=== PATIENT | female | born 1965 | race Caucasian/White ===

== ENCOUNTER → 2020-01-02 | Outpatient (CLI) | payer BC ==
--- NOTE | 2020-01-02 17:53 | MR ---
EXAMINATION TYPE: MR knee LT wo con DATE OF EXAM: 01/02/2020 COMPARISON: Outside knee x-ray October 20, 2019. HISTORY: Chronic left knee pain. TECHNIQUE: Multiplanar, multisequence images of the knee is performed without IV contrast. FINDINGS: MEDIAL MENISCUS: Anterior horn is intact without tear. Vague increased oblique signal does not extend to articular surface posterior horn. LATERAL MENISCUS: Anterior and posterior horns are intact without tear. CRUCIATE LIGAMENTS: The anterior and posterior cruciate ligaments are intact and unremarkable. COLLATERAL LIGAMENTS: The medial collateral ligament and lateral collateral ligament complex are inta ct and unremarkable. EXTENSOR MECHANISM: Visualized quadriceps and patellar tendons are intact. EFFUSION: No significant suprapatellar joint effusion. POPLITEAL CYST: No popliteal/garzon cyst. TRICOMPARTMENT SPACES: [id number] tricompartmental joint space loss greatest patellofemoral and medial tibiofemoral compartment. No significant spurring. CARTILAGE: Chondromalacia patella present with thinning of articular cartilage along posterior patell ar pole. Small focus full-thickness loss sagittal image 11 and axial image 22. BONE MARROW SIGNAL: Small focus increased T2 signal at site of full-thickness cartilaginous loss sagi ttal image 11. OTHER: No additional significant abnormality is appreciated. IMPRESSION: 1. No meniscal or ligamentous tear is seen. 2. Mild to moderate tricompartment degenerative changes greatest patellofemoral compartment as detail ed above.
== END | disposition home or self-care (01) ==
LOC: RADMRIMAIN 13:09
PROVIDERS: ATTEND Orthopaedic Surgery
DX: M17.12 Unilateral primary osteoarthritis, left knee (principal)

== ENCOUNTER 2020-01-18 10:14 | Emergency (ER) | payer BC ==
[2020-01-18] MEDS ORDERED: HYDROmorphone 1 MG/ML 1 ML SYRINGE IM STA (10:41)
[2020-01-18] MEDS ORDERED: methylPREDNISolone SOD SUCCI 125 MG/2 ML VIAL IM ONE (10:41)
[2020-01-18] MEDS ORDERED: DIAZEPAM 5 MG/ML 2 ML INJ IM ONE (10:41)
--- NOTE | 2020-01-18 10:46 | ED ---
Back Pain HPI - General Chief Complaint: Back Pain/Injury Stated Complaint: Back Pain Time Seen by Provider: 01/18/20 10:26 Source: patient, RN notes reviewed, old records reviewed Limitations: physical limitation - History of Present Illness Initial Comments: Patient is admitted to-year-old female who presents emergency department today for evaluation with chief complaint of severe lower back pain. Patient reports that she has history of chronic back pain muscle spasms and fibromyalgia. Patient reports that she called her primary care doctor and was placed on muscle relaxers. She does take Ultram for chronic pain from a paint tester as well as Motrin and Aleve. Patient reports that she was doing some exercises on Wednesday and woke up with severe back pain and stiffness and muscle spasms. She reports that after 4 days of using her current medication regimen she still having pain and decided come to the ER. She reports some intermittent paresthesias down bilateral extremities. She states that she's had no loss control of her urine or bowel habits. She reports normal sensation perineum. Patient states that she's had no abdominal pain. She reports that her Medicaid any medication such as stronger pain medicine like Percocet will not help with her pain. Patient reports that she does not plan to see her current paint tester as they're not helping her with her severe current pain. Patient has had no fevers or chills, nausea or vomiting or abdominal pain. - Related Data Previous Rx's Medication Instructions Recorded Diazepam [Valium] 5 mg PO Q8H PRN 3 Days #9 tab 01/18/20 HYDROcodone/APAP 5-325MG [Clarkridge 1 tab PO Q6HR PRN 3 Days #12 tab 01/18/20 5-325] Ibuprofen [Motrin] 600 mg PO Q6HR PRN #20 tab 01/18/20 Allergies Allergy/AdvReac Type Severity Reaction Status Date / Time Penicillins Allergy Unknown Verified 01/18/20 10:25 Childhood Review of Systems ROS Statement: Those systems with pertinent positive or pertinent negative responses have been documented in the HPI. ROS Other: All systems not noted in ROS Statement are negative. Past Medical History Past Medical History: Fibromyalgia Additional Past Medical History / Comment(s): back pain, DDD History of Any Multi-Drug Resistant Organisms: None Reported Past Surgical History: Tubal Ligation, Uterine Ablation Additional Past Surgical History / Comment(s): breast augmentation, liposuction Past Psychological History: Depression Smoking Status: Never smoker Past Alcohol Use History: None Reported Past Drug Use History: None Reported General Exam - General Exam Comments Initial Comments: [id number]-[id number]-mcg female. Alert and oriented 3. No significant distress. Limitations: physical limitation General appearance: alert, in no apparent distress Head exam: Present: atraumatic, normocephalic, normal inspection Eye exam: Present: normal appearance, PERRL, EOMI. Absent: scleral icterus, conjunctival injection, periorbital swelling ENT exam: Present: normal exam, mucous membranes moist Neck exam: Present: normal inspection. Absent: tenderness, meningismus, lymphadenopathy Respiratory exam: Present: normal lung sounds bilaterally. Absent: respiratory distress, wheezes, rales, rhonchi, stridor Cardiovascular Exam: Present: regular rate, normal rhythm, normal heart sounds. Absent: systolic murmur, diastolic murmur, rubs, gallop, clicks GI/Abdominal exam: Present: soft, normal bowel sounds. Absent: distended, guarding, rebound, rigid Extremities exam: Present: normal inspection, full ROM, normal capillary refill, other ( pulses 2+ dorsalis pedis and posterior tibial. Full range of motion of toes.). Absent: tenderness, pedal edema, joint swelling, calf tenderness Back exam: Present: normal inspection, tenderness (over lumbar spine, paraspinal muscle spasm bilteral thoracic and lumbar spine. ), muscle spasm, paraspinal tenderness (luimbar) Neurological exam: Present: alert, oriented X3, CN II-XII intact Psychiatric exam: Present: normal affect, normal mood Skin exam: Present: warm, dry, intact, normal color. Absent: rash Course Vital Signs 01/18/20 01/18/20 10:22 11:18 Temperature 98.3 F 98.1 F Pulse Rate 73 66 Respiratory 18 14 Rate Blood Pressure 114/68 132/68 O2 Sat by Pulse 100 99 Oximetry Medical Decision Making - Medical Decision Making [id number] female with history of my fibromyalgia and chronic back pain. She presents emergency room stay with 40s worsening back pain. It's worse with certain movements and reports muscle spasms. She is given IM pain medications as reports some relief. Patient states she plans follow with a new paint tester. Patient's x-ray showed evidence of changes disease and severe and L5-S1. Patient will be discharged at this time with anti- inflammatory and prescription for muscle relaxer pain medication. Discussed return parameters and PCP follow-up. - Radiology Data Radiology results: report reviewed multilevel degenerative disc changes, most severe at L5-S1. No acute frac ture. Disposition Clinical Impression: Back pain Disposition: HOME SELF-CARE Condition: Good Instructions (If sedation given, give patient instructions): Acute Low Back Pain (ED) Additional Instructions: Follow-up with new paint tester. Return to the ED if any alarming signs or symptoms occur. Prescriptions: Ibuprofen [Motrin] 600 mg PO Q6HR PRN #20 tab PRN Reason: Pain HYDROcodone/APAP 5-325MG [Cl[place]ridge 5-325] 1 tab PO Q6HR PRN 3 Days #12 tab PRN Reason: Pain Diazepam [Valium] 5 mg PO Q8H PRN 3 Days #9 tab PRN Reason: Muscle Spasm Is patient prescribed a controlled substance at d/c from ED?: Yes If prescribed controlled substance>3 days was MAPS reviewed?: Prescribed <3 Days If opioid is for acute pain is fill amount 7 days or less?: Yes If Rx opioid, was Start Talking consent form obtained?: Yes Referrals: Angie Harden DO [Primary Care Provider] - 1-2 days Lan Beckett MD [STAFF PHYSICIAN] - 1-2 days Jordan Sanchez DO [Doctor of Osteopathic Medicine] - 1-2 days Time of Disposition: 11:53
--- NOTE | 2020-01-18 11:16 | XR ---
EXAM TYPE: LUMBAR SPINE X RAY SERIES COMPARISON: NONE HISTORY: Pain TECHNIQUE: 4 views are submitted. FINDINGS: Alignment is anatomic. The pedicles are intact. The transverse processes are intact. There is no s pondylolysis or spondylolisthesis. There is mild hypertrophic and degenerative disc disc disease wit h severe changes at L5-S1. Facet arthropathy L4-5 and L5-S1. Chronic appearing deformity of the right 12th rib. IMPRESSION: 1. Multilevel degenerative disc disease most marked at L5-S1 with severe changes.
[2020-01-18 11:22] VITALS: TEMP 98.1
[2020-01-18 12:17] VITALS: BP 123/67; PULSE 79; RESP 16
== END 2020-01-18 12:18 | disposition home or self-care (01) ==
LOC: EC 10:14
DX: M54.5 Low back pain (principal); Z88.0 Allergy status to penicillin
CPT/HCPCS: 72100; 99284; 96372 ×3; J2930; J3360; J1170

== ENCOUNTER → 2020-05-21 | Outpatient (CLI) | payer BC ==
--- NOTE | 2020-05-21 22:35 | MR ---
EXAMINATION TYPE: MR knee RT wo con DATE OF EXAM: 05/21/2020 COMPARISON: Radiographs 10/20/2019. HISTORY: Right Knee Pain, Lateral side TECHNIQUE: Multiplanar, multisequence imaging of the right knee is performed without IV contrast. FINDINGS: MEDIAL MENISCUS: Mucoid degeneration of the posterior horn with suspected small peripheral tear. Ante rior horn is intact without tear. LATERAL MENISCUS: Anterior and posterior horns are intact without tear. CRUCIATE LIGAMENTS: The anterior and posterior cruciate ligaments are grossly intact. COLLATERAL LIGAMENTS: Mild thickening of the medial collateral ligament without disruption and sugges tive of prior grade 1 sprain. Lateral collateral ligament complex is grossly intact. EXTENSOR MECHANISM: Moderate insertional tendinosis of the quadriceps tendon with intrasubstance tear at the lateral aspect. Patellar tendon is intact. EFFUSION: Small knee joint effusion. POPLITEAL CYST: No significant popliteal/garzon cyst. TRICOMPARTMENT SPACES: Mild tricompartmental joint space narrowing. CARTILAGE: Small partial thickness chondral defect overlying the patellofemoral compartment lateral f acet. No significant chondral defect of the medial and lateral compartments. BONE MARROW SIGNAL: No focal abnormal marrow signal is appreciated. OTHER: Moderate soft tissue edema about the superolateral aspect of the knee. IMPRESSION: Moderate insertional tendinosis of the quadriceps tendon with intrasubstance tear. Associated moderat e soft tissue edema and small knee joint effusion. Mucoid degeneration of the medial meniscus posterior horn with suspected small peripheral tear. Mild chondromalacia of the patellofemoral compartment with partial thickness chondral defect. Prior grade 1 MCL sprain.
== END | disposition home or self-care (01) ==
LOC: RADMRIMAIN 16:28
PROVIDERS: ATTEND Orthopaedic Surgery
DX: M94.261 Chondromalacia, right knee (principal); S83.411A Sprain of medial collateral ligament of right knee, initial encounter; M79.89 Other specified soft tissue disorders; M23.321 Other meniscus derangements, posterior horn of medial meniscus, right knee; M25.461 Effusion, right knee

== ENCOUNTER → 2021-02-19 | Outpatient (CLI) | payer BC ==
[2021-02-19 08:30] VITALS: BP 135/88; PULSE 73; RESP 18; TEMP 98.2
--- NOTE | 2021-02-19 13:00 | P.PAINCN ---
History of Present Illness - Reason for Consult Consult date: 02/19/21 - History of Present Illness Emily is a 55-year-old male presented to clinic today for initial evaluation for pain management. She has a history of fibromyalgia, cervical degenerative disc disease, lumbar degenerative disc disease, and osteoarthritis. She reports that her pain is been going on for most of her life. She has a family history of osteoarthritis. Most pain today she's describing is in her neck and her back. She states is been ongoing for over 2025 years. She describes it as a constant achy pain sensation. Pain is aggravated with increased activity and touch. Pain is relieved with rest and soaking in her hot tub. In the past she has had physical therapy without much significant benefit. She is also had a lumbar epidural steroid injection at L5-S1 which gave her some significant benefit in the past. Today she rates her pain as 7 out of 10 on a 0-to-10 scale her pain can fluctuate from anywhere 4 out of 10-10 out of 10. He denies any bowel or bladder dysfunction, saddle anesthesia, or any other red flag symptoms. Past Medical History Past Medical History: Fibromyalgia Additional Past Medical History / Comment(s): back pain, DDD History of Any Multi-Drug Resistant Organisms: None Reported Past Surgical History: Tubal Ligation, Uterine Ablation Additional Past Surgical History / Comment(s): breast augmentation, liposuction Past Psychological History: Depression Smoking Status: Never smoker Past Alcohol Use History: None Reported Past Drug Use History: None Reported Medications and Allergies Allergies Allergy/AdvReac Type Severity Reaction Status Date / Time Penicillins Allergy Unknown Verified 02/19/21 08:30 Childhood Physical Exam REVIEW OF ORGAN SYSTEMS: CONSTITUTIONAL: No fevers or chills. No recent weight loss. EYES: denies troubles with vision. HEENT: No difficulties with hearing. No nosebleeds. No difficulty swallowing. RESPIRATORY: Denies any troubles with breathing or dyspnea on exertion. CARDIOVASCULAR: Denies any chest pain, palpitations, or recent heart attacks. GASTROINTESTINAL: Denies fatty food intolerance. Has change in bowel habits and gas bloat. GENITOURINARY: Denies any blood in urine. Has increased urinary frequency. NEUROLOGICAL: + numbness and tingling along the distal extremities. No seizure disorders or headaches. MUSCULOSKELETAL: Has back pain. SKIN:no skin cancer. No rash. PSYCHIATRIC: Denies current depression or suicidal thoughts. ENDOCRINE: Denies current thyroid disorders. Denies any blood sugar glucose intolerance. HEME/LYMPHATIC: Denies any lumps and bumps around the neck. History of deep venous thrombosis. ALLERGY/IMMUNOLOGY: No immunoglobulin therapy. No immune deficiencies. BREAST: Denies current breast lumps, pain or nipple discharge. Physical Examinations : Constitutiona : Cooperative , not in acute distress . HEENT : nech : supple , no Lymphadenopathy , normal thyroid size . : eyes no ptosis , no icterus, no photophobia . : ENT normal of hearing , normal oropharynx , no Thrush . Respiratory : Chest clear to auscultations Bilaterally , no wheezing , no Rhonchi . Cardiovascula : regular rate and rhythem , S1 , S2 , no S3 , no S4. Gastrointestina : abdomen soft no tenderness , bowel sounds , no organomegally . Genitourinary : Defferred . neurologic : Cranial nerve II to XII intact , no focal neurological deffecit . psychatric : alert , oriented X 3 , appropriate affect , intact judgment and insight . Lymphatic : no Lymphadenopathy . musculoskeltal : Cervical Spine motor stregnth in the deltoid and biceps, normal right side , normal Left side motor stregnth biceps and the wrist extensors normal right side ,normal left side . motor stregnth in the triceps muscle . normal Right side , normal Left side deep tendon reflexes= normal at the biceps , normal at Brachioradialis , normal at triceps. cervical facet loading test: Positive Bilaterally Spurling test= positive bilaterally. Neck distraction test= positive bilaterally. Nidia sign= negative bilaterally Lumber spine moter stegnth lower extremities ,thigh and legs 5/5 Right side , 5/5 Left side deep tendon reflexes : normal Knee Jerk , normal ankle Jerk lumber facet Loading Test= positive Right , positive Left Range of motion of the lumbar spine Flexion 30 degrees, extension 10 degrees strait leg raising test , positive at 20 degree Fabere test= positive Right , and positive left . Sever tenderness over the Sacroiliac joint on the Right , and Left sides Gaenslen test= positive bilaterally. Seated flexion test= positive bilaterally. Assessment and Plan Assessment: Assessment and plan Assessment: Fibromyalgia Cervical degenerative disc disease Lumbar degenerative disc disease Ruth osteoarthritis Plan: Patient could benefit from lumbar epidural steroid injection at L5-S1 Consider cervical epidural steroid injection at C7-T1 in the future Dr. Beckett was available by phone for consultation during his visit. I have spent 50 minutes on patient care today. The time was used to review the medical records including relevant urine studies and Prescription history (MAPs), review of the available imaging, evaluation and examination of the patient, coordination of care with the medical staff and if applicable referring physicians, as well as creation of the medical record. - PQRS measures = - Patient's medications are documented in the chart. -Tobacco use is negative -Patient's has not received pneumococcal vaccine. -Advanced care planning discussed, patient not eligible. -Opiate contract not signed. -Pain positive and follow-up visit/procedure is scheduled. - Patient's blood pressure was 135/88 -Patient was not identified as an unhealthy alcohol user Time with Patient: Greater than 30 PQRS Measure Charge Sheet - Pain Location Lower Back Non-Pharmacological Interventions: Exercise, Home Exercise, Inactivity, Relaxation Technique, Stretching Pharmacological Interventions: PRN Medication Neck Non-Pharmacological Interventions: Exercise, Home Exercise, Inactivity, Relaxation Technique, Stretching Pharmacological Interventions: PRN Medication
== END ==
LOC: PNWHC3 08:11
PROVIDERS: ATTEND Student in an Organized Health Care Education/Training Program
DX: M51.36 Other intervertebral disc degeneration, lumbar region (principal); M50.30 Other cervical disc degeneration, unspecified cervical region; M79.7 Fibromyalgia; M19.90 Unspecified osteoarthritis, unspecified site; Z88.0 Allergy status to penicillin
CPT/HCPCS: 99211

== ENCOUNTER → 2021-06-04 | Outpatient (CLI) | payer BC ==
[2021-06-04 10:56] VITALS: BP 116/69; PULSE 67; RESP 18; TEMP 98.3
--- NOTE | 2021-06-04 11:03 | P.PN ---
Subjective Progress Note Date: 06/04/21 Principal diagnosis: A 55 yr old female with a history of severe and chronic low back pain secondary to lumbar degenerative disc diseases and lumbar spondylosis with facet arthropathy presents today for evaluation status post LESI L5-S1 #1. She states she experienced 30-40% pain relief for 1 week status post procedure. Pain level waxes and wanes throughout the day but is currently at 6 out of 10 in intensity, dull, achy, constant in the lower aspects of the lumbar spine with constant radiation of burning pain down the left lower extremity. Pain is provoked by standing and walking for periods of 45 minutes or more. Pain is alleviated with heating pad use, daily guided exercises, participation in the yoga, use of a hot tub, repositioning and rest. Patient states she's had bad reactions to medications in the past and tries to take a natural approach to pain relief. Interventional pain procedures completed include LESI L5-S1 #1 Patient is currently on DENIES. Patient denies any side effects of the medication(s), denies excessive drowsiness or sleepiness, denies suicidal ideation and reports that the current pain medication is helping to control the pain and improve activities of daily living. Patient denies any motor or sensory deficits. Patient denies any fever or night sweats, denies any change in the bowel movements or urination. Physical Examination: -Constitutional: Cooperative. Not in acute distress . -HEENT: Neck is supple. No lymphadenopathy. No thyromegaly. Normal thyroid size. Eyes: No ptosis , no icterus, no photophobia. ENT: No auditory deficits. Normal oropharynx. No Thrush. - Respiratory: Chest clear to auscultations bilaterally. No wheezing. No rhonchi. - Cardiovascular: Regular rate and rhythm. S1 / S2 , no S3 , no S4. - Gastrointestinal: Abdomen soft no tenderness. Bowel sounds positive in all four quadrants. No organomegaly. - Genitourinary: Deferred. - Neurologic: Cranial nerve II to XII intact. No focal neurological deficits. - Psychatric: Alert & oriented x 3. Matching mood & appropriate affect. Judgment and insight intact. - Lymphatic: No Lymphadenopathy. - Musculoskeletal: Cervical spine: Muscle bulk/ tone/ strength in the bilateral upper extremities normal. Facet loading test cervical area positive. Lumbar spine: Motor bulk/ tone/ strength lower extremities , thigh and legs : 5/5 Deep tendon reflexes : Normal Knee Jerk. Normal Ankle Jerk . Vertebral body tenderness to palpation over L5 Lumbar Facet Loading Test Straight Leg Raise: positive at 30 degrees right side/ left side Gaenslen's Test positive on the left Sacral spine : Severe tenderness over the Sacroiliac joint: right side / left side Range of motion: Flexion of the lumbar spine <60 degrees Range of motion: Extension of the lumbar spine <20 degrees Gaenslen's Test positive Marilyn test: positive right side / left side Assessment and plan: Chronic low back pain secondary to lumbar degenerative disc disease , lumbar spondylosis with facet arthropathy without myelopathy Recommendation of LESI L4-L5. 6, benefits of procedure discussed and patient verbalized understanding. Denies anticoagulant use. Denies the medical history diabetes mellitus. All patient questions answered MAPS reviewed and it was appropriate. I have spent 31 minutes on patient care today. Dr Bcekett was available by phone for the evaluation of this patient. The time was used to review the medical records including relevant urine studies and Prescription history (MAPs), review of the available imaging, evaluation and examination of the patient, coordination of care with the medical staff and if applicable referring physicians, as well as creation of the medical record Objective - Vital Signs Vital signs: Vital Signs Temp 98.3 F 06/04/21 10:47 Pulse 67 06/04/21 10:47 Resp 18 06/04/21 10:47 BP 116/69 06/04/21 10:47 Pulse Ox 100 06/04/21 10:47 Intake & Output 06/03/21 06/04/21 06/04/21 18:59 06:59 18:59 Weight 53.524 kg PQRS Measure Charge Sheet Mode of Arrival: Ambulatory - Pain Location Generalized Non-Pharmacological Interventions: Heat, Home Exercise, Inactivity, Position/Reposition, Stretching Pharmacological Interventions: Epidural PQRS Narrative: Blood Pressure 116/69 Pain Intensity [Generalized] 6 Scale Used Numeric (1 - 10) Hx Alcohol Use (MH) No Home Medications: Ambulatory Orders No Known Home Medications 05/12/21
== END ==
LOC: PNWHC3 10:25
PROVIDERS: ATTEND Physician Assistant Medical
DX: M51.36 Other intervertebral disc degeneration, lumbar region (principal); M47.816 Spondylosis without myelopathy or radiculopathy, lumbar region; G89.29 Other chronic pain; Z88.0 Allergy status to penicillin
CPT/HCPCS: 99211

== ENCOUNTER 2021-07-08 11:49 | Day surgery (SDC) | payer BC ==
[2021-07-07 12:56] VITALS: BMI 20.3
[~2021-07-08 11:49] MED LIST: LACTATED RINGERS 1,000 ML IV SCH
[2021-07-08] MEDS ORDERED: LACTATED RINGERS 1,000 ML IV ONE (12:14)
--- NOTE | 2021-07-08 12:24 | P.PCN ---
Date of Procedure: 07/08/21 Description of Procedure: PREOPERATIVE DIAGNOSIS: lumbar radiculopathy POSTOPERATIVE DIAGNOSIS: Lumbar radiculopathy PROCEDURE 1. Lumbar epidural steroid injection under fluoroscopic guidance at the L4-L5 level. 2. Lumbar epidurogram. Imaging: Fluoroscopy was used, images where saved to the medical record ANESTHESIA: Local with 1% lidocaine 5 ml and Versed and fentanyl EBL: Minimal PROCEDURE INDICATION: The patient with low back pain and radiculitis symptoms unresponsive to conservative treatment. Fluoroscopy was used to optimize visualization of the needle placement and to maximize safety. PROCEDURE DESCRIPTION / TECHNIQUE: The patient was seen and identified in the preoperative area. Risks, benefits, complications including but not limited to infections ,bleeding ,allergic reaction to the medications, nerve damage and incomplete pain relief , as well as alternatives to the procedure were discussed with the patient. The patient agreed to proceed with the procedure and signed the consent. IV was started, and vital signs were stable. Patient was taken to the OR and time out was completed. The patient was placed in the prone position on procedure table and a pillow was placed under the abdomen to reduce lumbar lordosis. The lumbosacral area was prepped and draped in the usual sterile fashion. Vitals were closely monitored during the procedure. Using anterior-posterior fluoroscopy, the L4-L5 interlaminar space was identified and the skin over this site was marked and then infiltrated with 1% lidocaine subcutaneously. Subsequently, a 20-gauge Tuohy epidural needle was inserted and advanced toward the epidural space using the Loss of resistance technique and guided by AP and lateral fluoroscopy. The correct needle position in the epidural space was verified with the injection of 1 mL of Omnipaque 180 contrast to observe an acceptable epidurogram, after negative aspiration for blood and CSF and in the absence of paresthesias. Again after negative aspiration, a 3 ml mixture containing 40mg of depomedrol and 2 ml of preservative free Normal Saline was injected and a washout of epidurogram was seen. Needle was withdrawn intact, skin was cleansed, and bandages were applied. COMPLICATIONS: None DISPOSITION / PLANS: The patient was placed in a supine position and transferred to the recovery area in a stable condition for observation. There was no evidence of lower extremity motor or sensory deficit after the procedure. Patient was discharged from the recovery room after meeting discharge criteria. Home discharge instructions were given to the patient by the staff. The patient was reexamined prior to discharge. The patient will follow up as directed.
[2021-07-08 12:25] VITALS: TEMP 99.4
[2021-07-08] MEDS ORDERED: fentaNYL (PF) 50 MCG/ML 2 ML AMP ONE (12:32)
[2021-07-08] MEDS ORDERED: IOPAMIDOL M200 10 ML VIAL ONE (12:32)
[2021-07-08] MEDS ORDERED: MIDAZOLAM 2 MG/2 ML VIAL ONE (12:32)
[2021-07-08] MEDS ORDERED: methylPREDNISolone ACETATE 40 MG/ML 1 ML VIAL ONE (12:32)
[2021-07-08] MEDS ORDERED: IV FLUID CONTINUATION 800 ML IV ONE (12:44)
[2021-07-08 12:46] VITALS: RESP 16
[2021-07-08 13:06] VITALS: BP 99/66; PULSE 69
--- NOTE | 2021-07-08 13:18 | FL ---
EXAMINATION TYPE: FL guided pain mgmt statistic DATE OF EXAM: 07/08/2021 HISTORY: Fluoroscopy time 2 seconds of fluoroscopy provided. IMPRESSION: 1. Fluoroscopy time.
== END 2021-07-08 13:18 | disposition home or self-care (01) ==
LOC: ORPAIN 11:49
PROVIDERS: ATTEND Hospitalist
DX: M54.16 Radiculopathy, lumbar region (principal)
CPT/HCPCS: 62323; 81025; J2250; J1030; J3010; Q9966

== ENCOUNTER → 2021-10-13 | Outpatient (CLI) | payer BC ==
[2021-10-13 10:50] VITALS: BP 124/73; PULSE 62; RESP 18; TEMP 98.5
--- NOTE | 2021-10-13 14:25 | P.PAINPG ---
Objective - Vital Signs Vital signs: Intake & Output 10/12/21 10/13/21 10/13/21 18:59 06:59 18:59 Weight 53.524 kg PQRS Measure Charge Sheet Comment: A 55 yr old female with a history of severe and chronic low back pain secondary to lumbar degenerative disc diseases and lumbar spondylosis with facet arthropathy presents today for medication refills. Pain level is 7/10, lower back w radiation to BLEs. It is a constant ache, dull/ achy in character. Pain is provoked by any lifting. Pain is alleviated with massage therapy semimonthly for 2 yrs with last visit in 2020, chiropractic treatment weekly for 1 yr last in 2020, heat, topical Voltaren, repositioning and rest. Interventional pain procedures completed include LESI L4-L5 x 2 Patient is currently on Voltaren gel Patient denies any side effects of the medication(s), denies excessive drowsiness or sleepiness, denies suicidal ideation and reports that the current pain medication is helping to control the pain and improve activities of daily living. Patient denies any motor or sensory deficits. Patient denies any fever or night sweats, denies any change in the bowel movements or urination. Physical Examination: -Constitutional: Cooperative. Not in acute distress . - Neurologic: Cranial nerve II to XII intact. No focal neurological deficits. - Psychatric: Alert & oriented x 3. Matching mood & appropriate affect. Judgment and insight intact. - Musculoskeletal: Cervical spine: Muscle bulk/ tone/ strength in the bilateral upper extremities normal Vertebral body tenderness to palpation over Spurling test positive Distraction test positive Facet loading test positive Thoracic spine Muscle bulk / tone/ strength in the bilateral paraspinal muscles normal Vertebral body tender to palpation over Facet loading test positive Lumbar spine: Motor bulk/ tone/ strength lower extremities , thigh and legs : 5/5 Deep tendon reflexes : Normal Knee Jerk. Normal Ankle Jerk . Vertebral paraspinal tenderness to palpation over L1- S1 BL Lumbar Facet Loading Test positive Straight Leg Raise: positive at 30 degrees right side/ left side Gaenslen's Test positive Sacral spine : Severe tenderness over the Sacroiliac joint: right side / left side Range of motion: Flexion of the lumbar spine <60 degrees Range of motion: Extension of the lumbar spine <20 degrees Gaenslen's Test positive Misha's Test positive Marilyn test: positive right side / left side Thigh Thrust Test Sacral Thrust Test Assessment and plan: Chronic low back pain secondary to lumbar degenerative disc disease , lumbar spondylosis with facet arthropathy without myelopathy Recommendation of BL TPIs of L1-S1. Risks, benefits of procedure discussed and pt verbalized understanding. Denies anticoagulant use or medical history of diabetes. All patient questions answered MAPS reviewed and it was appropriate. Fill Elavil 25mg PO QHS #30 w 1 refill I have spent less than 30 minutes on patient care today. Dr Beckett was available by phone for the evaluation of this patient. The time was used to review the medical records including relevant urine studies and Prescription history (MAPs), review of the available imaging, evaluation and examination of the patient, coordination of care with the medical staff and if applicable referring physicians, as well as creation of the medical record - Pain Location Bilateral Lower Back Non-Pharmacological Interventions: Chiropractic Treatment, Heat, Home Exercise, Massage Pharmacological Interventions: Epidural, Topical Medication PQRS Narrative: Hx Alcohol Use (MH) No Home Medications: Ambulatory Orders Naltrexone HCl/Bupropion HCl [Contrave ER 8-90 mg Tablet] 1 tab PO Q24HR 30 Days #30 tab 08/06/21 Controlled Substance Measures - Controlled Substance Measures Is patient prescribed a controlled substance at discharge?: No
== END ==
LOC: PNWHC3 10:15
PROVIDERS: ATTEND Specialist
DX: M51.36 Other intervertebral disc degeneration, lumbar region (principal); M47.816 Spondylosis without myelopathy or radiculopathy, lumbar region; G89.29 Other chronic pain
CPT/HCPCS: 99211

== ENCOUNTER 2021-10-30 14:43 | Emergency (ER) | payer BC ==
[2021-10-30] MEDS ORDERED: ORPHENADRINE 30 MG/ML 2 ML VIAL IM STA (16:12)
[2021-10-30] MEDS ORDERED: KETOROLAC 15 MG/ML 1 ML VIAL IM STA (16:12)
--- NOTE | 2021-10-30 16:29 | ED ---
Back Pain HPI - General Chief Complaint: Back Pain/Injury Stated Complaint: Back pain Time Seen by Provider: 10/30/21 16:11 Source: patient Limitations: no limitations - History of Present Illness Initial Comments: Patient is a 55-year-old female presenting with chief complaint of back pain. Patient admits to chronic back pain, she states that after bending over for a laundry basket today, she noticed increased pain. She denies any loss of bowel or bladder control or saddle paresthesia. Patient states that she has fibromyalgia, and this pain feels like a heightened version of her chronic back pain. She states that it feels like a tightness and spasming. She denies saddle paresthesia, loss of bowel or bladder control, fever, chills, nausea, vomiting, chest pain, shortness of breath, abdominal pain, dysuria, hematuria, urgency, frequency, diarrhea, hematochezia, melena, weakness. - Related Data Previous Rx's Medication Instructions Recorded Amitriptyline HCl [Elavil] 25 mg PO HS 30 Days #30 tablet 10/13/21 HYDROcodone/APAP 5-325MG [[place] 1 tab PO Q4HR PRN 3 Days #18 tab 10/27/21 5-325] tiZANidine [Zanaflex] 4 mg PO Q6HR PRN 30 Days #60 tab 10/27/21 Allergies Allergy/AdvReac Type Severity Reaction Status Date / Time Penicillins Allergy Unknown Verified 10/30/21 16:06 Childhood Review of Systems ROS Statement: Those systems with pertinent positive or pertinent negative responses have been documented in the HPI. ROS Other: All systems not noted in ROS Statement are negative. Past Medical History Past Medical History: Fibromyalgia, Osteoarthritis (OA) Additional Past Medical History / Comment(s): Back pain, DDD. History of Any Multi-Drug Resistant Organisms: None Reported Past Surgical History: Breast Surgery, Tubal Ligation, Uterine Ablation Additional Past Surgical History / Comment(s): Breast augmentation, liposuction, pain clinic procedures. Past Anesthesia/Blood Transfusion Reactions: No Reported Reaction Past Psychological History: No Psychological Hx Reported, Depression Smoking Status: Never smoker Past Alcohol Use History: None Reported Past Drug Use History: None Reported - Past Family History Mother Family Medical History: No Reported History General Exam Limitations: no limitations General appearance: alert, in no apparent distress Head exam: Present: atraumatic, normocephalic, normal inspection Eye exam: Present: normal appearance, EOMI. Absent: scleral icterus, periorbital swelling Neck exam: Present: normal inspection Respiratory exam: Present: normal lung sounds bilaterally. Absent: respiratory distress, wheezes, rales, rhonchi, stridor Cardiovascular Exam: Present: regular rate, normal rhythm, normal heart sounds. Absent: systolic murmur, diastolic murmur, rubs, gallop, clicks Back exam: Present: normal inspection, paraspinal tenderness. Absent: vertebral tenderness Neurological exam: Present: alert, oriented X3, CN II-XII intact Psychiatric exam: Present: normal affect, normal mood Skin exam: Present: warm, dry, intact, normal color. Absent: rash Course Vital Signs 10/30/21 10/30/21 16:02 16:53 Temperature 98.6 F 98.2 F Pulse Rate 73 70 Respiratory 20 16 Rate Blood Pressure 149/82 146/80 O2 Sat by Pulse 100 99 Oximetry Medical Decision Making - Medical Decision Making Patient is a 55-year-old female presenting with chief complaint of low back pain. Patient states it feels like a more intense version of her chronic back pain. Patient states came on when bending over to clam picker a laundry basket. She denies any saddle paresthesia or loss of bowel or bladder control. On examination there is some paraspinal muscle tenderness and muscle spasm. No vertebral body tenderness. No radiculopathy. Patient is given pain medication and instructed to follow-up with her PCP. Report back to ER with any new or worsening symptoms. Discussed return parameters and answered all questions. Patient conveyed verbal understanding and agreed to the plan. I discussed this plan with my attending Dr. Casey Disposition Clinical Impression: Acute exacerbation of chronic low back pain Disposition: HOME SELF-CARE Condition: Good Instructions (If sedation given, give patient instructions): Acute Low Back Pain (ED), Chronic Back Pain (DC), Lower Back Exercises (ED) Additional Instructions: Follow-up with PCP in one to 2 days. Report back to ER with any new or worsening symptoms. Take medication as prescribed. Medication may cause drowsiness, do not take before driving or operating heavy machinery. Take Motrin and Tylenol as needed for pain control. Rest, and apply heat or ice as needed for relief. Is patient prescribed a controlled substance at d/c from ED?: No Referrals: Angie Harden DO [Primary Care Provider] - 1-2 days Time of Disposition: 16:29
[2021-10-30 16:54] VITALS: BP 146/80; PULSE 70; RESP 16; TEMP 98.2
== END 2021-10-30 16:53 | disposition home or self-care (01) ==
LOC: EC 14:43
DX: M54.50 Low back pain, unspecified (principal); G89.29 Other chronic pain; M19.90 Unspecified osteoarthritis, unspecified site; M79.7 Fibromyalgia; Z88.0 Allergy status to penicillin; Z79.899 Other long term (current) drug therapy
CPT/HCPCS: 99283; 96372 ×2; J2360; J1885

== ENCOUNTER 2021-12-02 09:42 | Day surgery (SDC) | payer BC ==
[2021-12-02 11:05] VITALS: TEMP 98.3
[2021-12-02] MEDS ORDERED: fentaNYL (PF) 50 MCG/ML 2 ML AMP ONE (11:30)
[2021-12-02] MEDS ORDERED: ROPIVACAINE 5 MG/ML 20 ML AMPULE ONE (11:30)
[2021-12-02] MEDS ORDERED: MIDAZOLAM 2 MG/2 ML VIAL ONE (11:30)
[2021-12-02] MEDS ORDERED: LACTATED RINGERS 1,000 ML BAG IV ONE (11:30)
[2021-12-02] MEDS ORDERED: methylPREDNISolone ACETATE 40 MG/ML 1 ML VIAL ONE (11:30)
--- NOTE | 2021-12-02 11:46 | P.PCN ---
Date of Procedure: 12/02/21 Description of Procedure: Pre and postop diagnosis: Myofascial pain syndrome Procedure: Trigger point injections X 12 Muscle groups: bilateral lumbar paraspinal, gluteus yovana, iliocostalis lumborum Surgeon: Michelle Kuo Anesthesia: Versed 2 mg, and fentanyl 100 g Sedation supervision start time : 1132 Sedation supervision end time : 1140 Complications: None Estimated blood loss: None Specimen removed: None Procedure indications: Patient had a history of myofascial pain syndrome. Patient tried conservative therapy. Came here for intervention procedure for better pain relief. Procedure description: Patient was seen and identified in the holding area risk benefits competitions alternative discussed with the patient. Patient agreed to proceed for the procedure signed the consent. Patient taken to the procedure area. Timeout was completed. A total number of 12 - trigger point area was marked with a sterile marker. After ChloraPrep used to clean the area. Critical pause was taken. Using 25-gauge 1-1/2 inch needle b[address] half way. Needle entered in each market site one mL of block solution injected at each level. The block solution containing 12 ml of 0.5% preservative-free ropivacaine with Depo-Medrol 40 MG. Needle removed intact skin cleaned and Band-Aid applied. Patient tolerated the procedure well. Disposition: Patient discharge home after meeting the discharge criteria from the recovery. Patient scheduled to follow up with the pain clinic in 4 weeks for follow-up visit.
[2021-12-02] MEDS ORDERED: IV FLUID CONTINUATION 1,000 ML IV ONE (11:48)
[2021-12-02 11:50] VITALS: RESP 18
[2021-12-02 12:01] VITALS: BP 114/76; PULSE 61
== END 2021-12-02 12:19 | disposition home or self-care (01) ==
LOC: ORPAIN 09:42
DX: M79.18 Myalgia, other site (principal); G89.29 Other chronic pain; M54.50 Low back pain, unspecified; Z88.0 Allergy status to penicillin; Z79.899 Other long term (current) drug therapy
CPT/HCPCS: 81025; 20553; J2250; J1030; J3010; J2795

== ENCOUNTER → 2021-12-24 | Outpatient (CLI) | payer BC ==
[2021-12-24 11:00] VITALS: BP 112/72; PULSE 67; RESP 18; TEMP 98.1
--- NOTE | 2021-12-24 14:53 | P.PAINPG ---
PQRS Measure Charge Sheet Comment: A 56 yr old female with a history of severe and chronic low back pain secondary to lumbar degenerative disc diseases and lumbar spondylosis with facet arthropathy without myelopathy presents today for evaluation s/p TPIs of BL lumbosacral paraspinal muscles. Pt stated she experienced 30% pain relief x 3 wks s/p procedure. Pain level is currently at 6/10 in intensity, constant, lower aspect fo the lumbar spine, acy/tight in character w shooting towards the LLE. Pain is provoked by bending/twisting/lifting. Pain is alleviated with medications ([place], Elavil, Zanaflex), toipcals, PT years ago, massage therapy yr ago, home stretching regimen, repositioning and rest. Pt iis disinterested in additional procedures at this time due to generalized pain she states is from her Fibromyalgia diagnosed in the . Pt states she has followed up w rheumatologists over the years that have told her "she's fine" and "theres nothing they can do" for her. Advised pt to see a PM & R physician that participates w her insurance plan to determine if she has Fibromyalgia and pt acknowledged understanding. Interventional pain procedures completed include BL lumbosacral TPIs. ESIs of L4-5 x1, L5-S1 x1. Patient is currently on [place], Zanaflex, Elavil Patient denies any side effects of the medication(s), denies excessive drowsiness or sleepiness, denies suicidal ideation and reports that the current pain medication is helping to control the pain and improve activities of daily living. Patient denies any motor or sensory deficits. Patient denies any fever or night sweats, denies any change in the bowel movements or urination. Physical Examination: -Constitutional: Cooperative. Not in acute distress . - Neurologic: Cranial nerve II to XII intact. No focal neurological deficits. - Psychatric: Alert & oriented x 3. Matching mood & appropriate affect. Judgment and insight intact. - Musculoskeletal: Cervical spine: Muscle bulk/ tone/ strength in the bilateral upper extremities normal Vertebral body tenderness to palpation over Spurling test positive Distraction test positive Facet loading test positive Thoracic spine Muscle bulk / tone/ strength in the bilateral paraspinal muscles normal Vertebral body tender to palpation over Facet loading test positive Lumbar spine: Motor bulk/ tone/ strength lower extremities , thigh and legs : 5/5 Deep tendon reflexes : Normal Knee Jerk. Normal Ankle Jerk . Vertebral body tenderness to palpation over L4, L5 Lumbar Facet Loading Test positive Straight Leg Raise: positive at 30 degrees right side/ left side Gaenslen's Test positive Sacral spine : Severe tenderness over the Sacroiliac joint: right side / left side Range of motion: Flexion of the lumbar spine <60 degrees Range of motion: Extension of the lumbar spine <20 degrees Gaenslen's Test positive Misha's Test positive Marilyn test: positive right side / left side Thigh Thrust Test Sacral Thrust Test Assessment and plan: Chronic low back pain secondary to lumbar degenerative disc disease , lumbar spondylosis with facet arthropathy without myelopathy All patient questions answered MAPS reviewed and it was appropriate. Prescription refill for Elavil 25mg #30 w 1 RF I have spent less than 30 minutes on patient care today. Dr Beckett was available by phone for the evaluation of this patient. The time was used to review the medical records including relevant urine studies and Prescription history (MAPs), review of the available imaging, evaluation and examination of the patient, coordination of care with the medical staff and if applicable referring physicians, as well as creation of the medical record PQRS Narrative: Hx Alcohol Use (MH) No Home Medications: Ambulatory Orders Amitriptyline HCl [Elavil] 25 mg PO HS 30 Days #30 tablet 10/13/21 HYDROcodone/APAP 5-325MG [[place] 5-325] 1 tab PO Q4HR PRN 3 Days #18 tab 10/27/21 tiZANidine [Zanaflex] 4 mg PO Q6HR PRN 12/24/21 Controlled Substance Measures - Controlled Substance Measures Is patient prescribed a controlled substance at discharge?: No
== END ==
LOC: PNWHC3 10:31
PROVIDERS: ATTEND Specialist
DX: M51.36 Other intervertebral disc degeneration, lumbar region (principal); M47.816 Spondylosis without myelopathy or radiculopathy, lumbar region; G89.29 Other chronic pain; Z88.0 Allergy status to penicillin
CPT/HCPCS: 99211

== ENCOUNTER → 2024-09-27 | Outpatient (CLI) | payer BC ==
[2024-09-27 13:19] VITALS: BP 107/71; PULSE 72; RESP 18; TEMP 97.9
--- NOTE | 2024-09-27 14:15 | XR ---
EXAMINATION TYPE: XR cervical spine limited DATE OF EXAM: 09/27/2024 1:59 PM INDICATION: Patient age:Female; 58 years old; Reason for study: G89.4, M54.16, M54.12; PHH, pain COMPARISON: None TECHNIQUE: The cervical spine was imaged in frontal, lateral, and odontoid projections. FINDINGS: The osseous structures show normal alignment without evidence of an acute fracture. Multilevel minima l disc space narrowing. No osteophytosis. Pedicles are intact. Soft tissues are within normal limits . The odontoid appears intact. IMPRESSION: 1. No fracture or dislocation. 2. Minimal multilevel degenerative disc disease of the cervical spine. [facility], , 09/27/2024 2:13 PM
--- NOTE | 2024-09-27 14:17 | XR ---
EXAMINATION TYPE: XR lumbar spine 2 or 3V DATE OF EXAM: 09/27/2024 CLINICAL HISTORY: G89.4, M54.16, M54.12 TECHNIQUE: Three views of the lumbar spine are submitted. COMPARISON: Lumbar spine radiograph 01/18/2020 FINDINGS: There are 5 lumbar type vertebral bodies identified. The lumbar spine shows satisfactory alignment w ithout evidence of acute fracture or dislocation. Vertebral body heights are within normal limits. There is disc space narrowing with endplate sclerosis and anterior osteophytosis at L5-S1. Vacuum dis c disease at the level. Multilevel facet arthropathy of the lower lumbar spine. The overlying soft t issue appears unremarkable. Chronic appearing deformity of the right 12th rib. IMPRESSION: 1. No acute fracture or dislocation is seen in the lumbar spine. 2. Similar multilevel degenerative disc disease of the lower lumbar spine. Severe at L5-S1 again. [facility], , 09/27/2024 2:15 PM
--- NOTE | 2024-09-27 16:13 | P.PAINPG ---
PQRS Measure Charge Sheet Comment: A 58 yr old female with a history of severe and chronic neck and LBP > 3 yrs secondary to radiculopathy, spondylosis with facet arthropathy without myelopathy presents today for evaluation. Pain level is currently at 6-7 /10 in intensity, constant, lower aspect of the cervical and lumbar spine, predominantl y axial, achy/tight in character w occasional shooting towards the LLE. Pain is provoked by bending/twisting/lifting. Pain is alleviated with chiropractic treatments semi monthly for years until 2021, physician guided exercise daily (including walking 3 miles daily in the [place]) since 2021, massage therapy yr ago, medications, topicals, repositioning and rest. Interventional pain procedures completed include BL lumbosacral TPIs (11/17), KRISTINE L4-5 x1, KRISTINE L5-S1 x1 Patient is currently on [place], Zanaflex, Elavil Patient denies any side effects of the medication(s), denies excessive drowsiness or sleepiness, denies suicidal ideation and reports that the current pain medication is helping to control the pain and improve activities of daily living. Patient denies any motor or sensory deficits. Patient denies any fever or night sweats, denies any change in the bowel movements or urination. Physical Examination: -Constitutional: Cooperative. Not in acute distress . - Neurologic: Cranial nerve II to XII intact. No focal neurological deficits. - Psychatric: Alert & oriented x 3. Matching mood & appropriate affect. Judgment and insight intact. - Musculoskeletal: Cervical spine: Muscle bulk/ tone/ strength in the bilateral upper extremities normal Vertebral body tenderness to palpation over Spurling test positive Distraction test positive Facet loading test positive Thoracic spine Muscle bulk / tone/ strength in the bilateral paraspinal muscles normal Vertebral body tender to palpation over Facet loading test positive Lumbar spine: Motor bulk/ tone/ strength lower extremities , thigh and legs : 5/5 Deep tendon reflexes : Normal Knee Jerk. Normal Ankle Jerk . Vertebral body tenderness to palpation over L4, L5 Lumbar Facet Loading Test positive Straight Leg Raise: positive at 30 degrees right side/ left side Gaenslen's Test positive Sacral spine : Severe tenderness over the Sacroiliac joint: right side / left side Range of motion: Flexion of the lumbar spine <60 degrees Range of motion: Extension of the lumbar spine <20 degrees Gaenslen's Test positive Misha's Test positive Marilyn test: positive right side / left side Thigh Thrust Test Sacral Thrust Test Assessment and plan: Chronic neck and LBP secondary to radiculopathy , spondylosis with facet arthropathy without myelopathy Recommendation of x rays M54.12, M54.16. All questions answered. I have spent less than 30 minutes on patient care today. Dr Beckett was available by phone for the evaluation of this patient. The time was used to review the medical records including relevant urine studies and Prescription history (MAPs), review of the available imaging, evaluation and examination of the patient, coordination of care with the medical staff and if applicable referring physicians, as well as creation of the medical record PQRS Narrative: Hx Alcohol Use (MH) No Home Medications: Ambulatory Orders HYDROcodone/APAP 5-325MG [[place] 5-325] 1 tab PO Q4HR PRN 3 Days #18 tab 10/27/21 Amitriptyline HCl [Elavil] 25 mg PO HS 30 Days #30 tablet 12/24/21 tiZANidine [Zanaflex] 4 mg PO Q6HR PRN 12/24/21 Controlled Substance Measures - Controlled Substance Measures Is patient prescribed a controlled substance at discharge?: No
== END ==
LOC: PNWHC3 13:00
PROVIDERS: ATTEND Specialist
DX: M47.26 Other spondylosis with radiculopathy, lumbar region (principal); M47.22 Other spondylosis with radiculopathy, cervical region; M51.360 Other intervertebral disc degeneration, lumbar region with discogenic back pain only; M50.30 Other cervical disc degeneration, unspecified cervical region; Z88.0 Allergy status to penicillin
CPT/HCPCS: 72040; 72100; 99211

== ENCOUNTER → 2024-10-08 | Outpatient (CLI) | payer BC ==
--- NOTE | 2024-10-09 07:33 | MR ---
EXAMINATION TYPE: MR cspine/lspine wo con DATE OF EXAM: 10/08/2024 6:48 PM COMPARISON: 10/28/2010. CLINICAL INDICATION: Female, 58 years old with history of M54.12 CERVICAL RADICULOPATHY; PHH, neck pa in, low and upper back pain that radiates down both legs. TECHNIQUE: Multi planar, multi sequence imaging was performed utilizing: T1-weighted, T2-weighted, a nd turbo inversion recovery imaging of the cervical and lumbar spine. IV Contrast: mL (None, if empty) FINDINGS: CERVICAL: Alignment: The cervical vertebral bodies have preserved heights. Alignment is within normal limits gi andie patient positioning. Bones: Bone signal is within normal limits. No abnormal bone marrow edema on inversion recovery seque nces. Cord: The spinal cord is unremarkable with regards to their signal intensity and morphology. Discs: C2-C3: No significant disc pathology. The spinal canal is patent. No neural foraminal stenosis. C3-C4: No significant disc pathology. The spinal canal is patent. No neural foraminal stenosis. C4-C5: No significant disc pathology. The spinal canal is patent. Bilateral facet and uncovertebral joint arthropathy are present with mild left neural foraminal stenosis. The right neural foramen is p atent. C5-C6: No significant disc pathology. The spinal canal is patent. Bilateral facet and uncovertebral joint arthropathy are present with mild bilateral neural foraminal stenosis. C6-C7: No significant disc pathology. The spinal canal is patent. No neural foraminal stenosis. C7-T1: No significant disc pathology. The spinal canal is patent. No neural foraminal stenosis. Other: Right thyroid 10 mm nodule. LUMBAR: Alignment: The lumbar vertebral bodies have preserved heights and alignment. Cord: The conus medullaris and the distal spinal cord appear unremarkable with regards to their signa l intensity and morphology. Bones/Discs: Diffuse low T1 and T2 signal throughout the bone marrow. Mild degeneration changes throu ghout the spine with osteophyte formation and facet joint arthropathy. More severe degeneration maurice es at L5-S1 with complete loss of disc space facet joint arthropathy and osteophytes. Intervertebral disc signal is maintained. No abnormal inversion recovery signal to suggest bony edema. T12-L1: No evidence of significant spinal canal stenosis or neural foraminal stenosis. L1-L2: No evidence of significant spinal canal stenosis or neural foraminal stenosis. L2-L3: No evidence of significant spinal canal stenosis or neural foraminal stenosis. L3-L4: No evidence of significant spinal canal stenosis or neural foraminal stenosis. L4-L5: No evidence of significant spinal canal stenosis or neural foraminal stenosis. L5-S1: Central disc protrusion is thought to be present with close approximation to the forming L5-S1 bilateral nerves. Facet joint arthropathy with moderate bilateral neural foraminal stenosis. No significant spinal canal or neural foraminal stenosis in the remainder of the visualized levels. Other findings: None. IMPRESSION: 1. L5-S1 central disc protrusion which closely approximates the exiting L5-S1 forming nerves. 2. No evidence for high-grade spinal canal stenosis. 3. Mild disc degeneration the spine with more focal severe at L5-S1 with associated osteoarthritic c hanges. 4. Diffuse red marrow conversion can be seen in the setting of tobacco abuse, anemia, or myeloprolif erative disorder. [facility], , 10/09/2024 7:30 AM
== END | disposition home or self-care (01) ==
LOC: RADMRIMAIN 18:15
PROVIDERS: ATTEND Specialist
DX: M51.17 Intervertebral disc disorders with radiculopathy, lumbosacral region (principal); M47.27 Other spondylosis with radiculopathy, lumbosacral region
CPT/HCPCS: 72141; 72148